=== PATIENT | male | born 1995 | race Caucasian/White ===

== ENCOUNTER 2024-05-16 08:30 | Outpatient (CLI) | payer BC, SELFPAY | END 2024-05-16 08:31 | disposition home or self-care (01) | LOC: NFLDREF 05-17 03:13 | PROVIDERS: PCP Physician Assistant Medical; Referring Provider Nurse Practitioner Family; Visit Provider Physician Assistant Medical | DX: Z13.228 Encounter for screening for other metabolic disorders (principal); Z13.220 Encounter for screening for lipoid disorders; Z13.29 Encounter for screening for other suspected endocrine disorder | CPT/HCPCS: 80053; 80061; 84439; 84443 ==

== ENCOUNTER 2024-05-24 07:03 | Outpatient (CLI) | payer BC, SELFPAY ==
--- NOTE | 2024-05-24 07:15 | CRLHL7_ITS ---
For Patients: As a result of the Century Cures Act, medical imaging exams and procedure reports are released immediately into your electronic medical record. You may view this report before your referring provider. If you have questions, please contact your health care provider. INDICATION: Low back pain. Left-sided sciatica. TECHNIQUE: Noncontrast sagittal and axial T1, T2, and sagittal STIR sequences are provided. No comparisons. FINDINGS: The overall stature, alignment and intrinsic marrow signal of the lumbar spine is within normal limits. Conus is normal. L5-S1: There is a large left lateral recess disc protrusion that extends 11 millimeters beyond the posterior vertebral body margin resulting in severe left lateral recess narrowing with compression of the traversing left S1 nerve root. No significant central canal or foraminal narrowing. Remainder of the lumbar spine is unremarkable, specifically no evidence of suspicious central canal or foraminal narrowing. IMPRESSION: 1. Prominent left lateral recess disc protrusion at L5-S1 contacting and compressing the traversing left S1 nerve root. 2. Otherwise, unremarkable MRI of the lumbar spine. Dictated by Darrell Delgadillo MD @ 05/24/2024 8:49:02 AM (Electronically Signed)
== END 2024-05-24 07:04 | disposition home or self-care (01) ==
LOC: MRI 07:06
PROVIDERS: PCP Physician Assistant Medical; Visit Provider Physician Assistant Medical
DX: M54.42 Lumbago with sciatica, left side (principal); M51.27 Other intervertebral disc displacement, lumbosacral region
CPT/HCPCS: 72148